=== PATIENT | male | born 1965 | race Two or more races ===

== ENCOUNTER 2024-04-08 15:03 | Emergency (ER) | payer MEDICAID, SELFPAY ==
[2024-04-08 15:06] VITALS: BP 132/89; PULSE 82; RESP 18; TEMP 37.5; O2SAT 96
[2024-04-08 15:09] VITALS: PULSE 92; O2SAT 98
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
[2024-04-08 16:08] LABS: Basophils # (Auto) 0.1 Thou/mm3 (0.0-0.2); Basophils % (Auto) 1 % (0-2.5); Eosinophils # (Auto) 0.1 Thou/mm3 (0.0-0.5); Eosinophils % (Auto) 2 % (0-10); Hematocrit 42.7 % (41.0-53.0); Immature Granulocytes % (Auto) 0 % (0-0); Immature Granulocytes Auto 0.02 Thou/mm3 (0.00-0.00); Lymphocytes # (Auto) 2.3 Thou/mm3 (1.0-4.8); Lymphocytes % (Auto) 31 % (10-50); Mean Corpuscular HGB Conc 32.8 g/dl (31.0-37.0); Mean Corpuscular Hemoglobin 28.3 pg (25.0-35.0); Mean Corpuscular Volume 86 fL (80-100); Monocytes # (Auto) 0.6 Thou/mm3 (0.0-0.8); Monocytes % (Auto) 7 % (0-12); Neutrophils # (Auto) 4.5 Thou/mm3 (1.8-7.7); Neutrophils % (Auto) 59 % (37-80); Nucleated Red Blood Cell % 0 /100 WBC (0); Platelet Count 269 Thou/mm3 (140-440); RDW Standard Deviation 39.7 fL (35.1-43.9); Red Blood Count 4.95 Miln/mm3 (4.50-5.90); White Blood Count 7.6 Thou/mm3 (3.8-10.6)
[2024-04-08 16:32] LABS: Alanine Aminotransferase 27 U/L (10-49); Albumin, Serum 4.3 gm/dL (3.4-4.8); Albumin/Globulin Ratio 1.7 (1.2-2.2); Alkaline Phosphatase 96 U/L (46-116); Anion Gap 5 (7-16); Aspartate Amino Transferase 15 U/L (0-34); BUN/Creatinine Ratio 19 Ratio (12-20); Bilirubin,Total 1.1 mg/dL (0.3-1.2); Blood Urea Nitrogen 17 mg/dL (9-23); Calcium 9.5 mg/dL (8.3-10.6); Calcium (Corrected) 9.5 mg/dL (8.5-10.1); Carbon Dioxide 28.7 mMol/L (20.0-31.0); Chloride 103 mMol/L (98-107); Creatinine (Component) 0.9 mg/dL (0.6-1.3); Globulin 2.5 gm/dL (2.3-3.5); Glucose 99 mg/dL (74-106); Osmolality,Calculated 275 (275-295); Sodium 137 mMol/L (136-145); Total Protein 6.8 gm/dL (5.7-8.2); eGFR > 60 See Note
[2024-04-08] MEDS: MORPHINE SULF INJ 10 MG/ML VIAL 4 MG IVP (16:39)
[2024-04-08] MEDS: ONDANSETRON INJ 2 MG/ML INJ 2 ML 4 MG IV (16:40)
[2024-04-08 16:45] VITALS: BP 119/82; PULSE 65; RESP 20; O2SAT 98
[2024-04-08 18:59] VITALS: BP 131/80; PULSE 92; RESP 19; TEMP 36.6; O2SAT 100
== END 2024-04-08 19:36 | disposition home or self-care (01) ==
PROVIDERS: Registered Nurse General Practice; Emergency Provider Emergency Medicine; PCP Family Medicine
DX: S20.219A Contusion of unspecified front wall of thorax, initial encounter (principal); M25.512 Pain in left shoulder; E11.9 Type 2 diabetes mellitus without complications; E78.5 Hyperlipidemia, unspecified; K57.32 Diverticulitis of large intestine without perforation or abscess without bleeding; I10 Essential (primary) hypertension; Z91.148 Patient's other noncompliance with medication regimen for other reason; V43.52XA Car driver injured in collision with other type car in traffic accident, initial encounter; Y92.410 Unspecified street and highway as the place of occurrence of the external cause
CPT/HCPCS: 36415; 70450; 71260; 72125; 74177; 80053; 85025; 85610; 85730; 96374; 99285; A4649; J2270; J2405; Q9967

== ENCOUNTER 2025-01-29 08:37 | Emergency (ER) | payer MEDICAID, SELFPAY ==
[2025-01-29 09:02] VITALS: BP 146/75; PULSE 78; RESP 16; TEMP 37; O2SAT 98; BMI 26.4
--- NOTE | 2025-01-29 09:03 | XR_ITS ---
Examination: PA lateral chest 2 views TECHNIQUE: Upright PA lateral chest 2 views Date and time: January 29, 2025 0920 hours INDICATIONS: Chest pain abdominal pain beginning 8 days ago. FINDINGS: Minimal subsegmental atelectasis in the lingular segment Normal heart size Cardiac leads satisfactory position No interval pneumonia or pulmonary edema IMPRESSION: No interval pneumonia or pulmonary edema
--- NOTE | 2025-01-29 09:03 | EKG_ITS ---
[facility] Test Date: 2025-01-29 Pat Name: RUBINA RODRIGUEZ Department: Room: - Gender: Male Rn Surgery: : 1965 Requested By: Angus Estrada (RAMIRO) Order Number: [id number] Reading MD: Angus Estrada (FIXED ROUTE OPERATOR) Measurements Intervals Gooding Rate: 64 P: 31 MA: 172 QRS: -7 QRSD: 85 T: 36 QT: 379 QTc: 394 Interpretive Statements SINUS RHYTHM INDETERMINATE AXIS No previous ECG available for comparison /store/S0/[id number].pdf
--- NOTE | 2025-01-29 09:03 | XR_ITS ---
Examination: CT abdomen and pelvis without contrast. Coronal 3-D reconstructions. Sagittal 2-D reconstructions. Date and time of exam:January 29, 2025 0907 hours INDICATIONS: Right lower abdominal pain with nausea beginning 8 days ago CTDI: vol (mGy): 6.87 DLP: (mGycm): 123 Technique: Axial images of the abdomen have been obtained, 3 mm slice thickness Intravenous contrast material has not been administered. Low dose protocols were performed. One or more of the following dose reduction techniques were used; automated exposure control, adjustment of the mA and/or KV according to patient size, use of iterative reconstruction technique. Findings: 15 mm right lobe liver cyst No gallstones No pancreatic or adrenal mass No renal or ureteral calculi, no hydronephrosis Aorta normal size No bowel obstruction No pericecal inflammatory change Colonic diverticulosis Significant thickening of the dial of the sigmoid colon axial image 187 Contracted urinary bladder No significant prostatomegaly Prominent osteopenia IMPRESSION: No renal or ureteral calculi, no hydronephrosis No CT findings of appendicitis or bowel obstruction Focal significant thickening of the dial of the sigmoid colon axial image 187, recommend elective colonoscopy follow-up to exclude early tumor in the colon at this site
--- NOTE | 2025-01-29 09:03 | PD.EDRME ---
Rapid Medical Screening Exam RME Arrival date/time: 01/29/25 08:37 59-year-old male presents emergency dept today for complaints of abdominal pain Chief Complaint: Abdominal Pain Vital signs: Vital Signs Temperature 98.6 F 01/29/25 09:02 Pulse Rate 78 01/29/25 09:02 Respiratory Rate 16 01/29/25 09:02 Blood Pressure 146/75 H 01/29/25 09:02 Pulse Oximetry (%) 98 01/29/25 09:02 Oxygen Delivery Method Room Air 01/29/25 09:02
[2025-01-29 09:55] LABS: Collection Type, Urine Clean Catch; Squamous Epithelial Cell,Urine 0 /hpf (0-5)
[2025-01-29 09:59] LABS: Basophils # (Auto) 0.1 Thou/mm3 (0.0-0.2); Basophils % (Auto) 1 % (0-2.5); Eosinophils # (Auto) 0.1 Thou/mm3 (0.0-0.5); Eosinophils % (Auto) 2 % (0-10); Hematocrit 44.0 % (41.0-53.0); Hemoglobin 14.0 g/dL (13.5-16.0); Immature Granulocytes Auto 0.02 Thou/mm3 (0.00-0.00); Lymphocytes # (Auto) 2.1 Thou/mm3 (1.0-4.8); Lymphocytes % (Auto) 39 % (10-50); Mean Corpuscular HGB Conc 31.8 g/dl (31.0-37.0); Mean Corpuscular Hemoglobin 27.9 pg (25.0-35.0); Mean Corpuscular Volume 88 fL (80-100); Monocytes # (Auto) 0.4 Thou/mm3 (0.0-0.8); Monocytes % (Auto) 8 % (0-12); Neutrophils # (Auto) 2.7 Thou/mm3 (1.8-7.7); Neutrophils % (Auto) 50 % (37-80); Nucleated Red Blood Cell # 0.00 Thou/mm3 (0.00-0.00); Nucleated Red Blood Cell % 0 /100 WBC (0); Platelet Count 270 Thou/mm3 (140-440); RDW Standard Deviation 41.9 fL (35.1-43.9); Red Blood Count 5.01 Miln/mm3 (4.50-5.90); White Blood Count 5.3 Thou/mm3 (3.8-10.6)
[2025-01-29 10:08] LABS: Bacteria,Urine Rare; Bilirubin,Urine Negative (Negative); Blood,Urine Negative (Negative); Clarity,Urine Clear (Clear/Hazy); Color,Urine Yellow (Lt Yel-Yel); Culture Indicated,Urine Not Indicated; Glucose, Urine Trace (Negative); Ketones,Urine Negative (Negative); Leukocyte Esterase,Urine Negative (Negative); Nitrite,Urine Negative (Negative); PH,Urine 6.0 (5.0-7.0); Protein,Urine Trace (Neg - Trace); RBC,Urine 4 /hpf (0-3); Specific Gravity,Urine 1.038 (1.001-1.035); Urobilinogen,Urine 2.0 mg/dL (0.0-1.0); WBC,Urine 2 /hpf (0-5)
[2025-01-29 10:21] LABS: Alanine Aminotransferase 22 U/L (10-49); Albumin, Serum 4.3 gm/dL (3.4-4.8); Albumin/Globulin Ratio 1.8 (1.2-2.2); Alkaline Phosphatase 98 U/L (46-116); Amylase 112 U/L (30-118); Anion Gap 8 (7-16); Aspartate Amino Transferase 26 U/L (0-34); BUN/Creatinine Ratio 20 Ratio (12-20); Bilirubin,Total 1.3 mg/dL (0.3-1.2); Blood Urea Nitrogen 20 mg/dL (9-23); Calcium 9.6 mg/dL (8.3-10.6); Calcium (Corrected) 9.6 mg/dL (8.5-10.1); Carbon Dioxide 30.3 mMol/L (20.0-31.0); Chloride 103 mMol/L (98-107); Creatinine (Component) 1.0 mg/dL (0.6-1.3); Estimated Creatinine Clearance 81.1 mL/min (>60); Globulin 2.4 gm/dL (2.3-3.5); Glucose 142 mg/dL (74-106); Osmolality,Calculated 285 (275-295); Potassium 3.9 mMol/L (3.4-5.1); Sodium 141 mMol/L (136-145); Total Protein 6.7 gm/dL (5.7-8.2); Troponin I < 0.020 ng/mL (0.0-0.045); eGFR > 60 See Note
--- NOTE | 2025-01-29 11:25 | EDNOTE_ITS ---
<Statement entered by Starla Jolly MD - 02/17/25 06:11> As co-signing physician, I was present and available for consult prn. I concur with the plan and care as documented by the midlevel provider. ED Abdominal Pain RME/HPI General Chief Complaint: Abdominal Pain Stated complaint: ABD PAIN Time seen by provider: 01/29/25 11:02 Arrival date/time: 01/29/25 08:37 RME / HPI RME / HPI narrative: 59-year-old male presents emergency dept today for complaints of abdominal pain. Epigastric in location, has been ongoing for the last 8 days, described as burning-like sensation, severity moderate. Associated with nausea. Patient denies any vomiting denies any diarrhea or constipation denies any other complaints. No fever also. Patient is currently taking omeprazole once a day. Related Data Previous Rx's ?Medication ?Instructions ?Recorded cyclobenzaprine 10 mg tablet 10 mg PO HS PRN muscle sp asm #10 08/13/19 tabs ibuprofen 800 mg tablet 800 mg PO Q6H PRN pain #20 t abs 08/13/19 acetaminophen 650 mg 650 mg PO Q12H #20 tabs 02/13 06/04 tablet,extended release (Tylenol Arthritis Pain) ondansetron HCl 4 mg tablet 4 mg PO Q8H #14 tabs 03/04 (Zofran) gabapentin 300 mg capsule 300 mg PO TID #30 caps 06/29 hydrocodone 5 mg-acetaminophen 325 1 tab PO Q6H PRN pa in #10 tabs 06/29/23 mg tablet ibuprofen 800 mg tablet (IBU) 800 mg PO Q8H #20 tabs 0 06/29/23 ciprofloxacin HCl 500 mg tablet 500 mg PO BID #14 tabs 09/24/23 (Cipro) dicyclomine 20 mg tablet 20 mg PO BID #20 tabs metronidazole 500 mg tablet 500 mg PO BID #14 tabs 05/07 ondansetron 4 mg disintegrating 4 mg PO Q8H #20 tabs 0 09/24/23 tablet meloxicam 7.5 mg tablet 7.5 mg PO QDAY #14 tabs 03/16 10/05 metoclopramide HCl 10 mg tablet 10 mg PO Q8H PRN nause a and 01/29/25 (Reglan) vomiting #30 tabs pantoprazole 40 mg tablet,delayed 40 mg PO BID #60 tab s 01/29/25 release (Protonix) Allergies Allergy/AdvReac Type Severity Reaction Status Date / Time meperidine HCl Allergy Mild shortness Verified 04/08/24 15:23 of breath Penicillins Allergy Unknown Verified 04/08/24 15:23 Review of Systems Review of Systems Narrative Review of Systems: Review of system reviewed and within normal limits except mentioned in HPI ED Exam Narrative Physical exam: VITAL SIGNS: Reviewed. GENERAL APPEARANCE: Alert and interactive, follows commands, no acute distress, HEAD AND FACE: Non-traumatic. ENT: PERRL, pink conjunctivitis, eyelid no trauma, Mucous membrane moist. NECK: Supple, nontender, no nuchal rigidity. CHEST: No tenderness, no crepitus, no paradoxical movement, no retractions. LUNGS: Clear, well ventilated, symmetric, no rales, no wheezing, no ronchi, no stridor, good breath sounds bilaterally. HEART: Regular rate, regular rhythm, no murmur, no gallops. ABDOMEN: Soft, positive bowel sounds, nondistended, no guarding, epigastric tenderness, no rebound, no masses, RECTAL: Deferred. GENITAL: Deferred. NEUROLOGICAL: Gross motor function intact sensory function intact, Appropriate for age. MUSCULOSKELETAL: low back nontender, full range of motion. EXTREMITIES: Nontender, full range of motion. SKIN: Color pink, dry, no rash, no lacerations, no abrasions, no contusions. LYMPHATICS: Deferred. Course Quality Measures none Orders Category Date Time Status EKG (ED ONLY) *Do not use* NOW Care 01/29/25 09:[address] abdomen pelvis wo con Stat Exams 01/29/25 09:03 Completed EKG (ED Only) Stat Exams 01/29/25 09:03 Draft XR chest 2V Stat Exams 01/29/25 09:03 Completed Amylase Stat Lab 01/29/25 09:43 Completed CBC Stat Lab 01/29/25 09:43 Completed Comprehensive Metabolic Panel Stat Lab 01/29/25 09:43 Completed Troponin I Stat Lab 01/29/25 09:43 Completed Urinalysis, C/S if Indicated Stat Lab 01/29/25 09:50 Completed Vital Signs Vital signs: Vital Signs Temperature 98.6 F 01/29/25 09:02 Pulse Rate 78 09/17/25 09:02 Respiratory Rate 16 01/29/25 09:02 Blood Pressure 146/75 H 01/29/25 09:02 Pulse Oximetry (%) 98 01/29/25 09:02 Oxygen Delivery Method Room Air 01/29/25 09:02 Abdominal Pain [facility] Narrative [facility] Narrative:: 59-year-old male presents emergency dept today for complaints of abdominal pain. Epigastric in location, has been ongoing for the last 8 days, described as burning-like sensation, severity moderate. Associated with nausea. Patient denies any vomiting denies any diarrhea or constipation denies any other complaints. No fever also. Patient is currently taking omeprazole once a day. Patient's workup today all came back unremarkable no acute metabolic or pathologic abnormality in the laboratory workup. CT scan of the abdomen and pelvis showed thickening in the sigmoid colon, patient was given a copy of his CT scan and advised him to do elective endoscopy colonoscopy. Patient agrees with the plan. Patient will be sent home on Protonix and Reglan Patient appears nontoxic and hemodynamically stable .Decision to discharge the patient. The patient/family was given an opportunity to ask questions and understood their discharge instructions. Discharge instructions specifically included follow up provider and time frame, current and/or new medications and possible side effects, indications for sooner follow up or return to the emergency department, and the expected course of current diagnosis. Patient reports feeling better as well and giving evidence of significant clinical improvement, I believe patient is now a candidate for discharge. Patient data External records reviewed:: None Clinical information provided by:: patient Social determinants that could affect healthcare access:: none Patient has the following chronic illnesses:: Diabetes hypertension How is presenting disease/condition affected by chronic disease/condition?: exacerbated by Evaluation data The following diagnostics were reviewed and interpreted by me:: lab results and radiology exam(s) Lab and/or radiology exams considered but not ordered:: none Interpretation Summary: See results [facility] Medications / Prescriptions Medications or Prescriptions considered but not ordered:: None Medication administrations:: None Consultations Consultation(s) initiated? (list below): No Diagnosis Differential diagnosis abdominal pain: abdominal pain and diverticulitis Most likely diagnosis given after review of the tests above:: Gastritis, abdominal pain Admission Indicated Admission indicated?: not indicated Admission Request Was there a request for admission?: No Disposition Plan Disposition Plan: Discharge Discharge Attestation Discharge Attestation: The patient was given an opportunity to ask questions and understood the discharge instructions. Discharge instructions specifically effects, indications for sooner follow up or return to the emergency department, and the expected course of current diagnosis. Patient condition: Stable Discharge Plan Plan Patient Disposition: HOME (Self Care) Discharge Disposition comment: stable Prescriptions/Referrals Prescriptions/Med Rec: New pantoprazole [Protonix] 40 mg tablet,delayed release (DR/EC) 40 mg PO BID Qty: 60 0RF metoclopramide HCl [Reglan] 10 mg tablet 10 mg PO Q8H PRN (Reason: nausea and vomiting) Qty: 30 0RF No Action ibuprofen 800 mg tablet 800 mg PO Q6H PRN (Reason: pain) Qty: 20 0RF cyclobenzaprine 10 mg tablet 10 mg PO HS PRN (Reason: muscle spasm) Qty: 10 0RF acetaminophen [Tylenol Arthritis Pain] 650 mg tablet extended release 650 mg PO Q12H Qty: 20 0RF ondansetron HCl [Zofran] 4 mg tablet 4 mg PO Q8H Qty: 14 0RF meloxicam 7.5 mg tablet 7.5 mg PO QDAY Qty: 14 0RF gabapentin 300 mg capsule 300 mg PO TID Qty: 30 0RF ibuprofen [IBU] 800 mg tablet 800 mg PO Q8H Qty: 20 0RF hydrocodone-acetaminophen 5-325 mg tablet 1 tab PO Q6H MDD 3 PRN (Reason: pain) Qty: 10 0RF ciprofloxacin HCl [Cipro] 500 mg tablet 500 mg PO BID Qty: 14 0RF metronidazole 500 mg tablet 500 mg PO BID Qty: 14 0RF dicyclomine 20 mg tablet 20 mg PO BID Qty: 20 0RF ondansetron 4 mg tablet,disintegrating 4 mg PO Q8H Qty: 20 0RF Referrals: Dirk Grajeda PA-C [Primary Care Provider] - In 1 week Problem List Clinical Impression: Abdominal pain, Gastritis Patient/Caregiver Discharge Instructions Discharge Activity: activity as tolerated Education Materials: ED Gastritis (Adult) Additional Instructions: Thank you for the opportunity for serving you today. You are stable for discharged . You are advised to: Follow-up with your PCP in 1 to 2 days Return to ED for worsening of symptoms Increase oral fluids Take medication as prescribed As your PCP to refer you to GI specialist for outpatient/elective endoscopy colonoscopy. Print Language: Indian Stand Alone Forms: Josie Award Info., Patient Portal Info Letter PA/DIRECTOR OF CONTENT AND PROGRAMMING Supervising Physician PA/DIRECTOR OF CONTENT AND PROGRAMMING Supervising Physician: MD Rik
== END 2025-01-29 12:03 | disposition home or self-care (01) ==
PROVIDERS: Emergency Provider Nurse Practitioner Primary Care; PCP Physician Assistant
DX: K29.70 Gastritis, unspecified, without bleeding (principal)
CPT/HCPCS: 36415; 71046; 74176; 80053; 81001; 82150; 84484; 85025; 93005; 99283

== ENCOUNTER 2025-02-13 12:53 | Emergency (ER) | payer MEDICAID, SELFPAY ==
[2025-02-13 13:16] VITALS: BP 137/86; PULSE 66; RESP 17; TEMP 37.1; O2SAT 97
--- NOTE | 2025-02-13 13:18 | XR_ITS ---
Examination: CT abdomen and pelvis without contrast. Coronal 3-D reconstructions. Sagittal 2-D reconstructions. Date and time of exam:February 13, 2025, 1419 hours, comparison 01/29/2025. INDICATIONS: Epigastric pain and nausea beginning 15 days ago CTDI: vol (mGy): 7.20 DLP: (mGycm): 160 Technique: Axial images of the abdomen have been obtained, 3 mm slice thickness Intravenous contrast material has not been administered. Low dose protocols were performed. One or more of the following dose reduction techniques were used; automated exposure control, adjustment of the mA and/or KV according to patient size, use of iterative reconstruction technique. Findings: No focal liver or splenic lesions No gallstones No pancreatic or adrenal mass No renal or ureteral calculi, no hydronephrosis Aorta normal size No bowel obstruction No pericecal inflammatory change Colonic diverticulosis Focal thickening in the sigmoid colon, axial image 199 Mild prostatomegaly Urinary bladder intact Significant osteopenia IMPRESSION: No renal or ureteral calculi, no hydronephrosis No bowel obstruction No CT findings of appendicitis There is significant focal thickening in the sigmoid colon, axial image 197, recommend elective colonoscopy follow-up to exclude early malignant neoplasm of the colon
--- NOTE | 2025-02-13 13:18 | PD.EDRME ---
Rapid Medical Screening Exam RME Arrival date/time: 02/13/25 12:53 60-year-old male presents the emergency room today with complaints of abdominal pain Chief Complaint: Abdominal Pain Vital signs: Vital Signs Temperature 98.8 F 02/13/25 13:16 Pulse Rate 66 02/13/25 13:16 Respiratory Rate 17 02/13/25 13:16 Blood Pressure 137/86 H 02/13/25 13:16 Pulse Oximetry (%) 97 02/13/25 13:16 Oxygen Delivery Method Room Air 02/13/25 13:16
[2025-02-13 13:48] LABS: Basophils # (Auto) 0.1 Thou/mm3 (0.0-0.2); Basophils % (Auto) 1 % (0-2.5); Eosinophils # (Auto) 0.1 Thou/mm3 (0.0-0.5); Eosinophils % (Auto) 2 % (0-10); Hematocrit 43.8 % (41.0-53.0); Hemoglobin 14.4 g/dL (13.5-16.0); Immature Granulocytes Auto 0.02 Thou/mm3 (0.00-0.00); Lymphocytes # (Auto) 2.4 Thou/mm3 (1.0-4.8); Lymphocytes % (Auto) 39 % (10-50); Mean Corpuscular HGB Conc 32.9 g/dl (31.0-37.0); Mean Corpuscular Hemoglobin 29.0 pg (25.0-35.0); Mean Corpuscular Volume 88 fL (80-100); Monocytes # (Auto) 0.5 Thou/mm3 (0.0-0.8); Monocytes % (Auto) 8 % (0-12); Neutrophils # (Auto) 3.0 Thou/mm3 (1.8-7.7); Neutrophils % (Auto) 50 % (37-80); Nucleated Red Blood Cell # 0.00 Thou/mm3 (0.00-0.00); Nucleated Red Blood Cell % 0 /100 WBC (0); Platelet Count 291 Thou/mm3 (140-440); RDW Standard Deviation 41.1 fL (35.1-43.9); Red Blood Count 4.97 Miln/mm3 (4.50-5.90); White Blood Count 6.1 Thou/mm3 (3.8-10.6)
[2025-02-13 14:04] LABS: Alanine Aminotransferase 26 U/L (10-49); Albumin, Serum 4.3 gm/dL (3.4-4.8); Albumin/Globulin Ratio 1.8 (1.2-2.2); Alkaline Phosphatase 99 U/L (46-116); Anion Gap 8 (7-16); Aspartate Amino Transferase 27 U/L (0-34); BUN/Creatinine Ratio 11 Ratio (12-20); Bilirubin,Total 1.0 mg/dL (0.3-1.2); Blood Urea Nitrogen 11 mg/dL (9-23); Calcium 9.4 mg/dL (8.3-10.6); Calcium (Corrected) 9.4 mg/dL (8.5-10.1); Carbon Dioxide 29.3 mMol/L (20.0-31.0); Chloride 102 mMol/L (98-107); Creatinine (Component) 1.0 mg/dL (0.6-1.3); Globulin 2.4 gm/dL (2.3-3.5); Glucose 117 mg/dL (74-106); Lipase 41 U/L (12-53); Osmolality,Calculated 277 (275-295); Potassium 4.2 mMol/L (3.4-5.1); Sodium 139 mMol/L (136-145); Total Protein 6.7 gm/dL (5.7-8.2); eGFR > 60 See Note
[2025-02-13] MEDS: HYDROcodone/APAP 5/325 TABLET 1 TAB PO (14:05)
[2025-02-13] MEDS: KETOROLAC INJ 30 MG/ML VIAL IM (14:06)
--- NOTE | 2025-02-13 15:04 | EDNOTE_ITS ---
ED Abdominal Pain RME/HPI General Chief Complaint: Abdominal Pain Stated complaint: ABD PAIN Time seen by provider: 02/13/25 13:47 Arrival date/time: 02/13/25 12:53 RME / HPI RME / HPI narrative: 02/13/25 12:53 60-year-old male presents the emergency room today with complaints of abdominal pain DR. RODRIGUEZ MAIN ED EVALUATION 60 year old male with history of hypertension presents to the ED for evaluation of abdominal pain and nausea today. Pain described as bloating pressure sensation that is located most to the epigastric and mid upper abdominal regions, rating as moderate. Reports he was evaluated here on 01/29/2025 for similar pain and prescribed Protonix which he took with no improvement. Patient mentioned he has followed up with PCP since ER visit 2 weeks ago and has an upcoming appointment for colonoscopy with GI in 2 weeks. Denies any fevers, chills, chest pain, cough, shortness of breath, vomiting, diarrhea, constipation, or urinary symptoms. Patient mentioned his diet does consist of diet coke, decaf coffee, fatty and spicy foods. Related Data Previous Rx's ?Medication ?Instructions ?Recorded cyclobenzaprine 10 mg tablet 10 mg PO HS PRN muscle sp asm #10 08/13/19 tabs acetaminophen 650 mg 650 mg PO Q12H #20 tabs 02/13 06/04 tablet,extended release (Tylenol Arthritis Pain) gabapentin 300 mg capsule 300 mg PO TID #30 caps 06/29 ciprofloxacin HCl 500 mg tablet 500 mg PO BID #14 tabs 09/24/23 (Cipro) dicyclomine 20 mg tablet 20 mg PO BID #20 tabs metronidazole 500 mg tablet 500 mg PO BID #14 tabs 05/07 metoclopramide HCl 10 mg tablet 10 mg PO Q8H PRN nause a and 01/29/25 (Reglan) vomiting #30 tabs pantoprazole 40 mg tablet,delayed 40 mg PO BID #60 tab s 01/29/25 release (Protonix) aluminum-mag hydroxide-simethicone 10 ml PO TID PRN in digestion #500 02/13/25 400 mg-400 mg-40 mg/5 mL oral susp mL (Maalox Maximum Strength) famotidine-Ca carb-mag hydrox 10 1 tab PO BID #14 tabs 02/13/25 mg-800 mg-165 mg chewable tablet (Pepcid Complete) ondansetron 8 mg disintegrating 8 mg PO Q12H PRN nause a and 02/13/25 tablet vomiting #10 tabs sucralfate 1 gram tablet (Carafate) 1 g PO .before eac h meal 14 days 02/13/25 #56 tabs Allergies Allergy/AdvReac Type Severity Reaction Status Date / Time meperidine HCl Allergy Mild shortness Verified 02/13/25 12:55 of breath Penicillins Allergy Unknown Verified 02/13/25 12:55 Review of Systems Review of Systems Systems Reviewed: All systems reviewed, normal except as documented Past Medical History Surgical History SURGICAL: Positive Pacemaker Social History SMOKING STATUS: Never smoker ED Exam Narrative Physical exam: Constitutional: Awake, alert, nontoxic, no acute distress HEENT: NC, AT, EOMI Neck: Supple CV: RRR, no m/r/g Lungs: CTAB, no w/r/r, no respiratory distress. Abd: Soft, epigastric tenderness, no rebound, no guarding, no HSM noted to palpation Extremities: No deformities, no edema noted Skin: Warm, dry, intact Course Quality Measures none Orders Category Date Time Status CT abdomen pelvis wo con Stat Exams 02/13/25 13:18 Completed CBC Stat Lab 02/13/25 13:29 Completed Comprehensive Metabolic Panel Stat Lab 02/13/25 13:29 Completed Lipase Stat Lab 02/13/25 13:29 Completed UA, C/S IF [Urinalysis, C/S if Indicated] Stat Lab 02/13/25 13:18 Ordered Dicyclomine [Bentyl] Med 02/13/25 15:14 Once 20 mg PO X1 ONE Famotidine [Pepcid] Med 02/13/25 15:14 Once 40 mg PO X1 ONE HYDROcodone*/APAP 5/325 [[place] 5/325] Med 02/13/25 13:18 Discontinued 1 tab PO X1 ONE Ketorolac Inj [Toradol Inj] Med 02/13/25 13:18 Discontinued 30 mg IM X1 ONE Sucralfate Susp [Carafate Susp] Med 02/13/25 15:14 Once 1 gm PO X1 ONE mg Hyd/Al Hyd/Lorenzo Susp [Maalox Susp] Med 02/13/25 15:14 Once 30 ml PO X1 ONE Vital Signs Vital signs: Vital Signs Temperature 98.8 F 02/13/25 13:16 Pulse Rate 66 02/13/25 13:16 Respiratory Rate 17 02/13/25 13:16 Blood Pressure 137/86 H 02/13/25 13:16 Pulse Oximetry (%) 97 02/13/25 13:16 Oxygen Delivery Method Room Air 02/13/25 13:16 Pulse ox is 97% on room air which is adequate. Abdominal Pain MDM MDM Narrative MDM Narrative:: Clara Cash am scribing for and in the presence of Dr. Rodriguez. Patient data External records reviewed:: [facility] previous records Clinical information provided by:: patient Social determinants that could affect healthcare access:: none Patient has the following chronic illnesses:: Hypertension How is presenting disease/condition affected by chronic disease/condition?: uneffected by Evaluation data The following diagnostics were reviewed and interpreted by me:: lab results and radiology exam(s) Lab and/or radiology exams considered but not ordered:: None Interpretation Summary: Ordering Physician: Sean WORKMAN),Angus RUBIO Date of Service: 02/13/25 Procedure(s): CT abdomen pelvis wo con Accession Number(s): [id number] cc: Sean WORKMAN),Angus RUBIO; Nicholas Betancur MD; Dirk Grajeda PA-C~ Examination: CT abdomen and pelvis without contrast. Coronal 3-D reconstructions. Sagittal 2-D reconstructions. Date and time of exam:February 13, 2025, 1419 hours, comparison 01/29/2025. INDICATIONS: Epigastric pain and nausea beginning 15 days ago CTDI: vol (mGy): 7.20 DLP: (mGycm): 160 Technique: Axial images of the abdomen have been obtained, 3 mm slice thickness Intravenous contrast material has not been administered. Low dose protocols were performed. One or more of the following dose reduction techniques were used; automated exposure control, adjustment of the mA and/or KV according to patient size, use of iterative reconstruction technique. Findings: No focal liver or splenic lesions No gallstones No pancreatic or adrenal mass No renal or ureteral calculi, no hydronephrosis Aorta normal size No bowel obstruction No pericecal inflammatory change Colonic diverticulosis Focal thickening in the sigmoid colon, axial image 199 Mild prostatomegaly Urinary bladder intact Significant osteopenia IMPRESSION: No renal or ureteral calculi, no hydronephrosis No bowel obstruction No CT findings of appendicitis There is significant focal thickening in the sigmoid colon, axial image 197, recommend elective colonoscopy follow-up to exclude early malignant neoplasm of the colon Dictated By: Nicholas Betancur MD Signed By: <Electronically signed by Nicholas Betancur MD in OV> 02/13/25 1456 Medications / Prescriptions Medications or Prescriptions considered but not ordered:: None Medication administrations:: Medication Administration History Discontinued Medications Hydrocodone Bitart/Acetaminophen (Hydrocodone/Apap 5/325 Tablet) 1 tab PO X1 ONE Stop: 02/13/25 13:19 Last Admin: 02/13/25 14:05 Dose: 1 tab Documented By: LIEN Ketorolac Tromethamine (Ketorolac Inj 30 Mg/Ml Vial) 30 mg IM X1 ONE Stop: 02/13/25 13:19 Last Admin: 02/13/25 14:06 Dose: 30 mg Documented By: LIEN See above Consultations Consultation(s) initiated? (list below): No Diagnosis Differential diagnosis abdominal pain: abdominal pain, gastroenteritis and other (gastritis, GERD ) Most likely diagnosis given after review of the tests above:: Epigastric abdominal pain, pb Gastritis Admission Indicated Admission indicated?: not indicated Admission Request Was there a request for admission?: No Disposition Plan Disposition Plan: Discharge Discharge Attestation Discharge Attestation: The patient and all family members were given an opportunity to ask questions and understood the discharge instructions. Discharge instructions specifically effects, indications for sooner follow up or return to the emergency department, and the expected course of current diagnosis. Patient condition: Stable Discharge Plan Plan Patient Disposition: HOME (Self Care) Patient condition on transfer: Stable Prescriptions/Referrals Prescriptions/Med Rec: New sucralfate [Carafate] 1 gram tablet 1 g PO .before each meal 14 Days Qty: 56 0RF ondansetron 8 mg tablet,disintegrating 8 mg PO Q12H PRN (Reason: nausea and vomiting) Qty: 10 0RF alum-mag hydroxide-simeth [Maalox Maximum Strength] 400-400-40 mg/5 mL suspension 10 ml PO TID PRN (Reason: indigestion) Qty: 500 0RF Pepcid Complete 10-800-165 mg tablet,chewable 1 tab PO BID Qty: 14 0RF Discontinued ibuprofen 800 mg tablet 800 mg PO Q6H PRN (Reason: pain) Qty: 20 0RF ondansetron HCl [Zofran] 4 mg tablet 4 mg PO Q8H Qty: 14 0RF meloxicam 7.5 mg tablet 7.5 mg PO QDAY Qty: 14 0RF ibuprofen [IBU] 800 mg tablet 800 mg PO Q8H Qty: 20 0RF hydrocodone-acetaminophen 5-325 mg tablet 1 tab PO Q6H MDD 3 PRN (Reason: pain) Qty: 10 0RF ondansetron 4 mg tablet,disintegrating 4 mg PO Q8H Qty: 20 0RF No Action cyclobenzaprine 10 mg tablet 10 mg PO HS PRN (Reason: muscle spasm) Qty: 10 0RF acetaminophen [Tylenol Arthritis Pain] 650 mg tablet extended release 650 mg PO Q12H Qty: 20 0RF gabapentin 300 mg capsule 300 mg PO TID Qty: 30 0RF ciprofloxacin HCl [Cipro] 500 mg tablet 500 mg PO BID Qty: 14 0RF metronidazole 500 mg tablet 500 mg PO BID Qty: 14 0RF dicyclomine 20 mg tablet 20 mg PO BID Qty: 20 0RF pantoprazole [Protonix] 40 mg tablet,delayed release (DR/EC) 40 mg PO BID Qty: 60 0RF metoclopramide HCl [Reglan] 10 mg tablet 10 mg PO Q8H PRN (Reason: nausea and vomiting) Qty: 30 0RF Referrals: Dirk Grajeda PA-C [Primary Care Provider] - In 1 week Problem List Clinical Impression: Gastritis Patient/Caregiver Discharge Instructions Education Materials: ED Diet, [place] (Adult), ED PEPTIC ULCER vs GASTRITIS Additional Instructions: Some general health principles that can help you are the [place] principles: Nutrition (eat a plant-based diet, avoiding meats in general, avoiding highly processed foods) Exercise (Daily exercise/walks as tolerated) Water (Drink adequate fresh water to maintain hydration, concentrating on water rather than on soda, coffee, tea, juice, etc for hydration) [place] (Spend time - 15-20 minutes or so with skin exposed in the ssis ssrs developer and late evening sun for Vitamin D health benefits) [place] (Avoid alcohol, illicit drugs, caffeinated beverages, smoking, etc) Air (Deep breathing exercises in the early mornings in fresh air) Rest (Adequate rest at night, going to bed a few hours before midnight and avoiding all screens/television/loud music in the time right before going to bed, also avoiding heavy meals just prior to going to bed) Trust in God (Spend time daily in Bible study and prayer - health benefits in contemplation of God's true character) Additional resources that can benefit: www.[employer], look under r esources and seminars. Print Language: Nepali Stand Alone Forms: Josie Award Info., Patient Portal Info Letter
[2025-02-13] MEDS: FAMOTIDINE 20 MG TABLET 40 MG PO (16:43)
[2025-02-13] MEDS: DICYCLOMINE 10 MG CAPSULE 20 MG PO (16:44)
[2025-02-13] MEDS: SUCRALFATE SUSP 1 GM/10 ML UDC PO (16:45)
[2025-02-13] MEDS: MG HYD/AL HYD/SIME (Maalox Reg) SUSP 30 ML UDC PO (16:45)
[2025-02-13 16:49] VITALS: BP 133/82; PULSE 66; RESP 18; TEMP 36.6; O2SAT 96
== END 2025-02-13 16:59 | disposition home or self-care (01) ==
PROVIDERS: Nurse Practitioner Primary Care; Emergency Provider Family Medicine; PCP Physician Assistant
DX: K29.70 Gastritis, unspecified, without bleeding (principal); I10 Essential (primary) hypertension
CPT/HCPCS: 36415; 74176; 80053; 81001; 83690; 85025; 96372; 99284; J1885; A9270

== ENCOUNTER 2025-03-09 11:13 | Emergency (ER) | payer MEDICAID, SELFPAY ==
[2025-03-09 11:38] VITALS: BP 102/63; PULSE 63; RESP 18; TEMP 36.7; O2SAT 97; BMI 27.6
--- NOTE | 2025-03-09 11:42 | XR_ITS ---
EXAMINATION: PA chest single view TECHNIQUE: 1. Upright PA chest single view Date and time: March 09, 2025, 11:58 a.m., comparison 01/29/2025 INDICATIONS: Weakness shortness of breath today. FINDINGS: Minor prominence left ventricle. Cardiac leads satisfactory position No lobar pneumonia or pulmonary edema. The osseous structures are intact. IMPRESSION: No pulmonary edema or pneumonia.
--- NOTE | 2025-03-09 11:42 | EKG_ITS ---
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
--- NOTE | 2025-03-09 11:43 | PD.EDRME ---
Rapid Medical Screening Exam E Arrival date/time: 03/09/25 11:13 This is a 60-year-old male that comes into the emergency room with complaints of weakness. Patient also states he has been having abdominal pain for the past month. Patient states he has ulcers. Patient is taking medication to help with nausea currently. Patient does have a history of diabetes and high cholesterol. Patient denies any runny nose, cough, sore throat. I have greeted and performed a focused initial assessment of this patient. Initial appropriate labs ordered at this time. A comprehensive ED assessment and evaluation of the patient and analysis of all test and completion of medical decision making process will be conducted by additional ED provider. Chief Complaint: Weakness Time Seen by Provider: 03/09/25 11:25 Vital signs: Vital Signs Temperature 98.1 F 03/09/25 11:38 Pulse Rate 63 03/09/25 11:38 Respiratory Rate 18 03/09/25 11:38 Blood Pressure 102/63 03/09/25 11:38 Pulse Oximetry (%) 97 03/09/25 11:38 Oxygen Delivery Method Room Air 03/09/25 11:38 Exam: Alert and oriented Breathing even unlabored Skin warm and dry Clinical Impression: GERD, mi, URI
[2025-03-09 12:22] LABS: Basophils # (Auto) 0.0 Thou/mm3 (0.0-0.2); Basophils % (Auto) 1 % (0-2.5); Eosinophils # (Auto) 0.1 Thou/mm3 (0.0-0.5); Eosinophils % (Auto) 2 % (0-10); Hematocrit 44.8 % (41.0-53.0); Hemoglobin 14.3 g/dL (13.5-16.0); Immature Granulocytes Auto 0.02 Thou/mm3 (0.00-0.00); Lymphocytes # (Auto) 2.0 Thou/mm3 (1.0-4.8); Lymphocytes % (Auto) 34 % (10-50); Mean Corpuscular HGB Conc 31.9 g/dl (31.0-37.0); Mean Corpuscular Hemoglobin 28.0 pg (25.0-35.0); Mean Corpuscular Volume 88 fL (80-100); Monocytes # (Auto) 0.4 Thou/mm3 (0.0-0.8); Monocytes % (Auto) 7 % (0-12); Neutrophils # (Auto) 3.3 Thou/mm3 (1.8-7.7); Neutrophils % (Auto) 57 % (37-80); Nucleated Red Blood Cell # 0.00 Thou/mm3 (0.00-0.00); Nucleated Red Blood Cell % 0 /100 WBC (0); Platelet Count 293 Thou/mm3 (140-440); RDW Standard Deviation 41.1 fL (35.1-43.9); Red Blood Count 5.11 Miln/mm3 (4.50-5.90); White Blood Count 5.9 Thou/mm3 (3.8-10.6)
[2025-03-09 12:40] LABS: Collection Type, Urine Voided; Squamous Epithelial Cell,Urine 0 /hpf (0-5)
[2025-03-09 12:42] LABS: Alanine Aminotransferase 32 U/L (10-49); Albumin, Serum 4.8 gm/dL (3.4-4.8); Albumin/Globulin Ratio 2.3 (1.2-2.2); Alkaline Phosphatase 90 U/L (46-116); Anion Gap 9 (7-16); Aspartate Amino Transferase 32 U/L (0-34); BUN/Creatinine Ratio 13 Ratio (12-20); Bilirubin,Total 1.1 mg/dL (0.3-1.2); Blood Urea Nitrogen 12 mg/dL (9-23); Calcium 9.6 mg/dL (8.3-10.6); Calcium (Corrected) 9.6 mg/dL (8.5-10.1); Carbon Dioxide 28.8 mMol/L (20.0-31.0); Chloride 104 mMol/L (98-107); Creatinine (Component) 0.9 mg/dL (0.6-1.3); Estimated Creatinine Clearance 90.2 mL/min (>60); Globulin 2.1 gm/dL (2.3-3.5); Glucose 124 mg/dL (74-106); Lipase 47 U/L (12-53); Osmolality,Calculated 283 (275-295); Potassium 4.1 mMol/L (3.4-5.1); Sodium 142 mMol/L (136-145); Total Protein 6.9 gm/dL (5.7-8.2); Troponin I < 0.002 ng/mL (0.0-0.045); eGFR > 60 See Note
[2025-03-09 12:43] LABS: B-Type Natriuretic Peptide < 20 pg/mL (0-100)
[2025-03-09 13:03] LABS: Bilirubin,Urine Negative (Negative); Blood,Urine Negative (Negative); Clarity,Urine Clear (Clear/Hazy); Color,Urine Lt-Yellow (Lt Yel-Yel); Culture Indicated,Urine Not Indicated; Glucose, Urine Negative (Negative); Ketones,Urine Negative (Negative); Leukocyte Esterase,Urine Negative (Negative); Nitrite,Urine Negative (Negative); PH,Urine 6.0 (5.0-7.0); Protein,Urine Negative (Neg - Trace); RBC,Urine 1 /hpf (0-3); Specific Gravity,Urine 1.017 (1.001-1.035); Urobilinogen,Urine Negative mg/dL (0.0-1.0); WBC,Urine 1 /hpf (0-5)
--- NOTE | 2025-03-09 13:24 | EDNOTE_ITS ---
<Statement entered by Starla Jolly MD - 03/16/25 14:17> As co-signing physician, I was present and available for consult prn. I concur with the plan and care as documented by the midlevel provider. ED General RME/HPI General Chief complaint: Weakness Stated complaint: WEAK, TIRED X 3 DAYS Time Seen by Provider: 03/09/25 11:25 Arrival date/time: 03/09/25 11:13 CC: Weakness HPI onset approximately 4 to 5 days ago after the patient was informed to switch to a bland diet and stop drinking sodas. The patient was admitted at another hospital for epigastric pain and was told to change his diet since the diet change the patient has been feeling weak. Patient denies falls loss of consciousness altered level of consciousness. Patient's follow-up appointment is March 19. Patient denies chest pain shortness of breath or difficulty breathing. RME / HPI RME / HPI narrative: 03/09/25 11:13 This is a 60-year-old male that comes into the emergency room with complaints of weakness. Patient also states he has been having abdominal pain for the past month. Patient states he has ulcers. Patient is taking medication to help with nausea currently. Patient does have a history of diabetes and high cholesterol. Patient denies any runny nose, cough, sore throat. I have greeted and performed a focused initial assessment of this patient. Initial appropriate labs ordered at this time. A comprehensive ED assessment and evaluation of the patient and analysis of all test and completion of medical decision making process will be conducted by additional ED provider. Exam: Alert and oriented Breathing even unlabored Skin warm and dry Impression: GERD, mi, URI Related Data Previous Rx's ?Medication ?Instructions ?Recorded cyclobenzaprine 10 mg tablet 10 mg PO HS PRN muscle sp asm #10 08/13/19 tabs acetaminophen 650 mg 650 mg PO Q12H #20 tabs 02/13 06/04 tablet,extended release (Tylenol Arthritis Pain) gabapentin 300 mg capsule 300 mg PO TID #30 caps 06/29 ciprofloxacin HCl 500 mg tablet 500 mg PO BID #14 tabs 09/24/23 (Cipro) dicyclomine 20 mg tablet 20 mg PO BID #20 tabs metronidazole 500 mg tablet 500 mg PO BID #14 tabs 05/07 metoclopramide HCl 10 mg tablet 10 mg PO Q8H PRN nause a and 01/29/25 (Reglan) vomiting #30 tabs pantoprazole 40 mg tablet,delayed 40 mg PO BID #60 tab s 01/29/25 release (Protonix) aluminum-mag hydroxide-simethicone 10 ml PO TID PRN in digestion #500 02/13/25 400 mg-400 mg-40 mg/5 mL oral susp mL (Maalox Maximum Strength) famotidine-Ca carb-mag hydrox 10 1 tab PO BID #14 tabs 02/13/25 mg-800 mg-165 mg chewable tablet (Pepcid Complete) ondansetron 8 mg disintegrating 8 mg PO Q12H PRN nause a and 02/13/25 tablet vomiting #10 tabs Allergies Allergy/AdvReac Type Severity Reaction Status Date / Time Penicillins Allergy Severe Rash Verified 03/09/25 11:16 meperidine HCl Allergy Mild shortness Verified 03/09/25 11:16 of breath Review of Systems Review of Systems Narrative Review of Systems: GEN: No fever, no chills, no weight loss EYES: No discharge, no visual changes, no pain HEENT: No ear pain, no congestion, no sore throat PULM: No shortness of breath, no cough, no congestion CV: No chest pain, no dyspnea on exertion, no palpitations GI: No nausea, no vomiting, no diarrhea, no pain, no constipation : No frequency, no urgency, no dysuria MUSC/SKEL: No joint pain, no back pain SKIN: No rash PSYCH: No hallucinations, no depression HEME/LYMPH: No easy bleeding or bruising tendencies NEURO: +weakness, no headache Past Medical History Past Medical History CARDIAC: Negative Cardiac Disorders or Congestive Heart Failure RESPIRATORY: Negative Chronic Obstructive Pulmonary Disease (COPD) or Asthma GENITOURINARY: Negative Renal Disease ENDOCRINE: Negative Diabetes Mellitus Type 1 or Diabetes Mellitus Type 2 HEMATOLOGIC: Negative Sickle Cell Disease Surgical History SURGICAL: Positive Pacemaker Social History SMOKING STATUS: Former smoker ED Exam Narrative Physical exam: [General: Not in any acute distress Head normocephalic HEENT: Within acceptable limits Neck is supple nontender Chest equal chest rise nontender to palpation Respiratory: Clear to auscultation no wheezes crackles or rubs CV: Rate rhythm is regular no murmurs rubs or clicks Abdomen is soft nontender no masses positive bowel sounds all 4 quadrants Back: No CVA tenderness no spinous process tenderness from cervical spine thoracic and lumbar spine Skin: Intact no petechiae rash induration ulceration or crepitus Extremities: Moving all extremity against resistance cap refill less than 2 seconds neurosensory intact Neuro: Awake alert oriented x3 Glascow coma 15 no focal deficits] Course Quality Measures none Orders Category Date Time Status EKG (ED ONLY) *Do not use* NOW Care 03/09/25 11:42 Completed EKG (ED Only) Stat Exams 03/09/25 11:42 Draft XR chest 1V Stat Exams 03/09/25 11:42 Taken BNP [B-Type Natriuretic Peptide] Stat Lab 03/09/25 12:07 Completed CBC Stat Lab 03/09/25 12:07 Completed Comprehensive Metabolic Panel Stat Lab 03/09/25 12:07 Completed Drug Screen,Urine Stat Lab 03/09/25 12:30 Received Lipase Stat Lab 03/09/25 12:07 Completed Troponin I Stat Lab 03/09/25 12:07 Completed Urinalysis, C/S if Indicated Stat Lab 03/09/25 12:30 Completed Vital Signs Vital signs: Vital Signs Temperature 98.1 F 03/09/25 11:38 Pulse Rate 63 03/09/25 11:38 Respiratory Rate 18 03/09/25 11:38 Blood Pressure 102/63 03/09/25 11:38 Pulse Oximetry (%) 97 03/09/25 11:38 Oxygen Delivery Method Room Air 03/09/25 11:38 Discharge Plan Plan Patient Disposition: HOME (Self Care) Patient condition on transfer: Stable Prescriptions/Referrals Prescriptions/Med Rec: No Action cyclobenzaprine 10 mg tablet 10 mg PO HS PRN (Reason: muscle spasm) Qty: 10 0RF acetaminophen [Tylenol Arthritis Pain] 650 mg tablet extended release 650 mg PO Q12H Qty: 20 0RF ondansetron 8 mg tablet,disintegrating 8 mg PO Q12H PRN (Reason: nausea and vomiting) Qty: 10 0RF alum-mag hydroxide-simeth [Maalox Maximum Strength] 400-400-40 mg/5 mL suspension 10 ml PO TID PRN (Reason: indigestion) Qty: 500 0RF Pepcid Complete 10-800-165 mg tablet,chewable 1 tab PO BID Qty: 14 0RF gabapentin 300 mg capsule 300 mg PO TID Qty: 30 0RF ciprofloxacin HCl [Cipro] 500 mg tablet 500 mg PO BID Qty: 14 0RF metronidazole 500 mg tablet 500 mg PO BID Qty: 14 0RF dicyclomine 20 mg tablet 20 mg PO BID Qty: 20 0RF pantoprazole [Protonix] 40 mg tablet,delayed release (DR/EC) 40 mg PO BID Qty: 60 0RF metoclopramide HCl [Reglan] 10 mg tablet 10 mg PO Q8H PRN (Reason: nausea and vomiting) Qty: 30 0RF Referrals: Johnie Carlos MD [Physician, Family Practice] - In 1 week Problem List Clinical Impression: Generalized weakness Patient/Caregiver Discharge Instructions Other Activity Instructions:: You are most likely feeling weak secondary to your diet change. He will take several more weeks for your body to get used to the new diet please stay on this diet as it will ultimately improve your health. Make sure you follow-up with your primary care doctor on March 19. 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 Labs Labs: interpreted by tn Lab(s) Interpretation(s): CBC shows no acute leukocytosis anemia thrombocytopenia CMP shows no significant electrolyte imbalances renal impairment transaminitis or T. bili elevation Urine is negative for UTI Imaging Imaging interpretation: interpreted by tn Imaging Interpretation(s): Chest x-ray shows no acute finding pacemaker in place. Medication Administration(s) none Diagnosis Differential Diagnosis ED Complaint MDM: Weakness anemia electrolyte imbalance
[2025-03-09 13:36] LABS: Amphetamine/Methamp Scrn,U Negative (Negative); Barbiturate Screen,Urine Negative (Negative); Benzodiazepines Screen,Urine Negative (Negative); Benzoylecgonine Screen, Ur Negative (Negative); Fentanyl Screen,Urine Negative (Negative); Opiate Screen,Urine Negative (Negative); THC Screen,Urine Negative (Negative)
--- NOTE | 2025-03-09 13:40 | PC.NURSE ---
Pt. here from home to room 9, pt. states he has been weak,dizzy and lightheaded X 4 days. Pt. states he has had nausea X 1 month. Pt. denies any vomiting.
--- NOTE | 2025-03-09 13:49 | PC.NURSE ---
Pt. states he can't walk very far and then he has to sit down.
[2025-03-09 14:50] VITALS: BP 129/86; PULSE 61; RESP 22; TEMP 36.4; O2SAT 97
--- NOTE | 2025-03-09 15:34 | PC.NURSE ---
PROVIDER SPOKE WITH PT, OKAY PER PROVIDER TO D/C.
== END 2025-03-09 15:35 | disposition home or self-care (01) ==
LOC: SERX 13:54
PROVIDERS: Nurse Practitioner Family; Emergency Provider Emergency Medicine; PCP Family Medicine
DX: R53.1 Weakness (principal)
CPT/HCPCS: 36415; 71045; 80053; 80307; 81001; 83690; 83880; 84484; 85025; 93005; 99282